=== PATIENT | male | born 1980 | race African-American/Black ===

== ENCOUNTER 2022-03-21 11:54 | Emergency (ER) | payer OTHER ==
[~2022-03-21] VITALS: Ht 180.3 cm; Wt 113.4 kg
[2022-03-21 12:17] LABS: PLATELET COUNT 154 K/uL (142-355)
[2022-03-21 12:38] LABS: POTASSIUM 3.9 mmol/L (3.6-5.2)
[2022-03-21 12:42] LABS: PARTIAL THROMBOPLASTIN TIME 29.6 SECONDS (24.5-33.6)
[2022-03-21 19:00] VITALS: TEMP 98.1
[2022-03-21 19:10] VITALS: BP 154/78
== END 2022-03-21 19:13 | disposition still patient (30) ==
LOC: ED 11:54
PROVIDERS: Hospitalist
DX: R07.89 Other chest pain (principal); Z20.822 Contact with and (suspected) exposure to COVID-19
CPT/HCPCS: 80053; 82550; 83880; 84484; 85027; 85610; 85730; 87635; 93005; 99284; U0003